=== PATIENT | female | born 1985 | race Caucasian/White ===

== ENCOUNTER 2023-11-25 00:43 | Emergency (ER) | payer OTHER ==
[~2023-11-25] VITALS: Ht 170.2 cm; Wt 65.8 kg
[2023-11-25] MEDS ORDERED: ACYCLOVIR 200 MG CAPSULE ONE (01:18)
[2023-11-25] MEDS ORDERED: predniSONE 20 MG TABLET ONE ×2 (01:18→01:21)
[2023-11-25] MEDS: predniSONE 50 MG TABLET PO ONE (01:26)
[2023-11-25] MEDS: ACYCLOVIR 200 MG CAPSULE PO ONE (01:27)
[2023-11-25] MEDS ORDERED: ACYCLOVIR 200 MG CAPSULE PO ONE (01:30)
[2023-11-25 01:38] LABS: APPEARANCE,URINE CLEAR (CLEAR); BILIRUBIN,URINE NEGATIVE (NEGATIVE); BLOOD, URINE NEGATIVE Ery/uL (NEGATIVE); COLOR,URINE YELLOW (YELLOW); KETONES,URINE NEGATIVE (NEGATIVE); LEUKOCYTE ESTERASE ,URINE NEGATIVE (NEGATIVE); NITRITE, URINE NEGATIVE (NEGATIVE); PROTEIN,URINE NEGATIVE (NEGATIVE); UGLUCOSE NEGATIVE (NEGATIVE); UROBILINOGEN,URINE 0.2 EU/dL (0.2)
[2023-11-25 01:39] LABS: PREGNANCY TEST URINE QUAL NEGATIVE (NEGATIVE)
[2023-11-25 01:45] LABS: BASOPHILS # (AUTO) 0.1 K/uL (0.0-0.2); BASOPHILS % (AUTO) 1.1 % (0.0-2.0); EOSINOPHILS % (AUTO) 8.4 % (0.0-6.0); HEMATOCRIT 35 % (33-45); HEMOGLOBIN 11.6 g/dL (11.5-14.8); LYMPHOCYTES # (AUTO) 3.3 K/uL (0.8-4.8); LYMPHOCYTES % (AUTO) 27.2 % (20.0-44.0); MEAN CORPUSCULAR HEMOGLOBIN 28 PG (26.0-33.0); MEAN CORPUSCULAR HGB CONC 33 g/dl (31.0-36.0); MEAN CORPUSCULAR VOLUME 86 fL (82-100); MONOCYTES % (AUTO) 8.3 % (2.0-12.0); NEUTROPHILS # (AUTO) 6.6 K/uL (1.8-8.9); PLATELET COUNT (AUTO) 186 K/uL (150-450); RED CELL DISTRIBUTION WIDTH 14.7 % (11.5-15.0)
[2023-11-25 01:57] LABS: CALCIUM, SERUM 8.4 mg/dL (8.5-10.1); CREATININE 0.8 mg/dL (0.6-1.3); POTASSIUM 3.5 mmol/L (3.5-5.1)
[2023-11-25 02:03] LABS: ALBUMIN 3.8 g/dL (3.4-5.0); BILIRUBIN,TOTAL 0.3 mg/dL (0.2-1.0); TOTAL PROTEIN, SERUM 6.8 g/dL (6.4-8.2)
[2023-11-25] MEDS ORDERED: PRED50TA PO (02:17)
[2023-11-25] MEDS ORDERED: ACYC-108 PO (02:17)
[2023-11-25 02:25] VITALS: BP 118/94; TEMP 99.5; O2SAT 97
== END 2023-11-25 02:26 | disposition home or self-care (01) ==
LOC: ER 00:43
DX: G51.0 Bell's palsy (principal); R10.2 Pelvic and perineal pain; Z79.899 Other long term (current) drug therapy
CPT/HCPCS: 99283; 85025; 84703; 81003; 36415; 80053; J7512